=== PATIENT | male | born 1955 | race Caucasian/White ===

== ENCOUNTER 2017-12-07 04:20 | Emergency (ER) | payer SELFPAY ==
[~2017-12-07] VITALS: Ht 190.5 cm; Wt 97.5 kg
[2017-12-07] MEDS ORDERED: ETOMIDATE (2MG/ML) 20ML VIAL IV ONE (05:30)
[2017-12-07 06:45] VITALS: BP 138/86
== END 2017-12-07 06:50 | disposition home or self-care (01) ==
LOC: ER 04:23
DX: S43.004A Unspecified dislocation of right shoulder joint, initial encounter (principal); X58.XXXA Exposure to other specified factors, initial encounter; Y93.89 Activity, other specified; Y92.89 Other specified places as the place of occurrence of the external cause; Y99.8 Other external cause status
CPT/HCPCS: 23650; 73020; 73030